=== PATIENT | male | born 1960 | race Caucasian/White ===

== ENCOUNTER 2017-02-05 18:18 | Emergency (ER) | payer OTHER ==
--- NOTE | 2017-02-05 18:32 | UCPHY ---
H & P Patient Type: New HPI/ROS: CHIEF COMPLAINT: Sore throat, sinus congestion. HISTORY OF PRESENT ILLNESS: The patient is a 56-year-old male presenting with congestion and sinus pain that developed over the weekend, 3 days ago. The patient has been taking Advil 600mg every 6 hours with no relief of the forehead discomfort wears a head work yesterday. He reports rhinorrhea that has now caused sinus pain that radiates into his jaw. The patient has cough that is nonproductive. He complains of body aches as well as intermittent headaches. Today he developed a sore throat. He received the influenza vaccine this season. No fever, vomiting, or diarrhea. There has been a mild cough but he explains it is from his throat REVIEW OF SYSTEMS: Constitutional: No fever, no chills. Eyes: No discharge. ENT: Sore throat. Respiratory: Cough, though no shortness of breath, or wheezing. Skin: No rashes. Neurological: Headache, moderate as noted above Past Medical/Surgical History: Negative. Social History: Moved here from [place]. Physical Exam: General Appearance: Alert, no distress. Afebrile. Normal phonation. No respiratory distress. Nontoxic Eyes: Pupils equal and round no pallor or injection. No icterus ENT, Mouth: Mucous membranes moist. Pharynx without erythema or exudate. Right ear: Dullness, though no erythema. No pain with palpation of the frontal maxillary sinuses well as the ethmoid sinuses Neck: No adenopathy. Supple. No JVD. Trachea in midline. Respiratory: There are no retractions, lungs are clear to auscultation. Cardiovascular: Regular rate and rhythm, without murmur Skin: Warm and dry, no rashes. Constitutional: Initial Vital Signs Temperature (C) 36.8 C 02/05/17 18:32 Heart Rate 70 02/05/17 18:32 Respiratory Rate 14 02/05/17 18:32 Blood Pressure 162/92 H 02/05/17 18:32 O2 Sat (%) 93 02/05/17 18:32 O2 Delivery Mode Room Air Allergies/Adverse Reactions: No Known Allergies Allergy (Unverified 02/05/17 18:31) Home Medications: Medication Instructions Recorded Amoxicillin 1,500 mg PO BID 5 Days 02/05/17 Amoxicillin 500 mg PO TID 5 Days 04/16/17 Prevacid 02/05/17 SIMVASTATIN 04/16/17 Medical Decision Making ED Course/Re-evaluation: The patient presents with multiple upper respiratory complaints as well as body aches and headaches that developed over the weeks. He reports sore throat, congestion, sinus pressure, and cough. He received an influenza shot this season.Strep swab is negative. Plan to discharge home with a prescription for antibiotics if patient's sinus pressure does not improve in 1 week. Differential Diagnosis: Diagnostic considerations include, but are not limited to, the following: URI, sinusitis, pharyngitis, otitis media, pneumonia, allergy, influenza. - Data Points Laboratory Results: 02/05/17 02/05/17 Unknown 18:30 Group A Strep Screen NEGATIVE (NEGATIVE) Group A Strep DNA Pending Departure - Departure Disposition: Home, Routine, Self-Care Clinical Impression: Upper respiratory infection Qualifiers: URI type: unspecified viral URI Qualified Code(s): J06.9 - Acute upper respiratory infection, unspecified; B97.89 - Other viral agents as the cause of diseases classified elsewhere Condition: Good Instructions: Upper Respiratory Infection (ED) Additional Instructions: 1. Drink plenty of fluids. 2. I recommend Afrin for nasal congestion. 3. If you have difficulty sleeping due to cough and congestion, I recommend Benadryl. 4. Adult Pain & Fever Control: We recommend Acetaminophen (Tylenol) and Ibuprofen (Motrin,Advil) for pain and fever control. When fever is high or pain severe, both drugs can be used at the same time, but at different intervals. Please note the time differences. Your dose is: Acetaminophen 650mg every 4 to 6 hours Ibuprofen 600mg every 6-8 hours with food. Note: do not take Acetaminophen with Hydrocodone (Vicodin, Lortab) or Oycodone (Percocet). These medications also contain Acetaminophen. No more than 3000mg of Acetaminophen should be taken in 24 hours (for an adult). 5. If your cough is preventing you from sleep, I recommend Delerm DM - 4 tsp twice a day. 6. If your symptoms do not improve after 7 days begin taking the antibiotics as directed - at this point in time he did not have findings to suggest sinusitis. However next or Monday if you of pain when he leaned over pain with pressure overlying the sinuses then start the antibiotics. There are both containing amoxicillin at higher doses thereby it is only a shorter course. 7. You have been referred to a primary care physician below. Please followup with them if your symptoms persist. Referrals: Theo Dumont MD [Medical Doctor] - As per Instructions (Primary Care Physician) Prescriptions: Amoxicillin 1,500 mg PO BID 5 Days Amoxicillin 500 mg PO TID 5 Days - PQRS PQRS Measurement: NA Report Scribed for: Everardo Welch Report Scribed by: Ceci Marti Date of Report: 02/05/17 Time of Report: 19:15
[2017-02-05 18:55] VITALS: BP 162/92; PULSE 70; RESP 14; TEMP 98.2; O2SAT 93
== END 2017-02-05 19:33 | disposition home or self-care (01) ==
LOC: CED 18:18
DX: J06.9 Acute upper respiratory infection, unspecified (principal); B97.89 Other viral agents as the cause of diseases classified elsewhere
CPT/HCPCS: 87880-PO; 99203-PO; G0463-PO